=== PATIENT | male | born 1980 | race Caucasian/White ===

== ENCOUNTER 2019-05-29 17:22 | Emergency (ER) | payer OTHER, SELFPAY ==
[2019-05-29 17:23] VITALS: BP 126/91; PULSE 86; RESP 15; TEMP 36.4; O2SAT 98
--- NOTE | 2019-05-29 18:02 | CT_ITS ---
STUDY: CT BRAIN WITHOUT CONTRAST REASON FOR EXAM: Male, 38 years old. Visual disturbances. RADIATION DOSAGE (If Supplied By Facility): CTDIvol = ( 60.81 ) mGy, DLP = ( 1044.28 ) mGycm TECHNIQUE: Transaxial CT imaging of the brain was performed without administration of intravenous contrast material. Individualized dose optimization techniques were used for this CT. COMPARISON: June 28, 2016 and MRI of the brain dated August 08, 2016 FINDINGS: Normal soft tissue structures. Normal calvarium. Normal size ventricles and extra-axial spaces for the patient''s age. Normal white matter tracts of the cerebral hemispheres. Normal basal ganglia and thalami. Normal brainstem. Normal cerebellum. There is no intracranial hemorrhage. There are no findings of an acute ischemic infarction. Normal visualized paranasal sinuses. CT/Brain/Head without Contrast IMPRESSION: No acute intracranial process. Electronically Signed: Charissa Pavon MD at 18:30 EST Tel , Service support ,
--- NOTE | 2019-05-29 19:57 | ED.VISSUMM ---
- ER Visit Summary Date of Service: 05/29/19 Chief Complaint: Bilateral visual disturbance History of Present Illness: The patient is a 38 M who comes to the ER today saying he is having after images. He states he is having half oates and halo images around his eyes intermittently. They last about 20 minutes and then they go away. He denies any trauma to the area. He wears glasses. He denies any blurry vision. No diplopia. He has no pain in the eyes. He has a slight very mild headache. No history of migraines. Physical Examination: Vital signs reviewed. Bilateral eye exam is normal. His pupils are equal. His extraocular motions are intact and normal. There is no nystagmus. The posterior exam reveals a normal fundus. His neurologic exam is also normal. Test Results: CAT scan of the head is normal Emergency Department Course and Treatment: I am unclear as to what is causing the patient's symptoms. He is in no acute distress right now. He is not having any of these symptoms. I will give him ophthalmology follow-up and he is going to call them tomorrow morning. Treatment Plan: [] Disposition: Discharge Impression: Bilateral visual disturbance This note was generated with [employer] dictation software. It may contain incorrect words, spelling, and punctuation that were not noted in review of the chart prior to signing ED Disposition - Plan for ED Patient: Disposition: Home or Assisted Living Instructions: Treating Flashes and Floaters Referrals: Alem Mejia MD [STAFF PHYSICIAN] -
[2019-05-29 20:00] VITALS: BP 142/98; PULSE 97; RESP 18; O2SAT 97
== END 2019-05-29 20:26 | disposition home or self-care (01) ==
PROVIDERS: Emergency Provider Emergency Medicine; Family Provider Internal Medicine; PCP Internal Medicine
DX: H53.19 Other subjective visual disturbances (principal)
CPT/HCPCS: 70450; 99282

== ENCOUNTER 2020-03-07 07:01 | Observation (INO) | payer OTHER, SELFPAY ==
[2020-03-07] VITALS (14 sets, daily range): BP systolic 107–136; BP diastolic 73–101; PULSE 80–117; RESP 16–18; TEMP 36.3–36.9; O2SAT 93–100; BMI 27.3; BMI 27.6
--- NOTE | 2020-03-07 | APP_PTH ---
PATIENT: ABRAHAM BLEVINS LOC: [facility]3 U#:[id number] AGE/SX: 39/M ROOM: MS314 RE03/07/[address]: Dr. Chon Mathias MD : 1980 BED: 1 DIS: 03/08/2020 SPEC #: [id number] RECD: 03/07/20 14:25 STATUS: MEE RENeisha #: [id number] TONY: 03/07/20 00:[address]: Chon Mathias DEPT: SURGICAL PATHOLOGY RECD BY: Ayaz [place] ENTERED: 03/08/20 08:36 SP TYPE: APPENDIX OTHR DR: Dr. Sumi Granados MD Tissues: Appendix, NOS Procedures: Surgery Specimen Level III HEADER OPERATION: Laparoscopic appendectomy PRE-OP DIAGNOSIS: Acute appendicitis TISSUE SUBMITTED: Appendix MICROSCOPIC DIAGNOSIS Appendix, appendectomy: Acute necrotizing appendicitis. Acute serositis. AM:vinod 03/09/20 MICROSCOPIC DESCRIPTION Slides are reviewed. GROSS DESCRIPTION Received in fixative is one container labeled with the patient's name and designated appendix. The specimen consists of an appendix measuring 7 cm in length and up to 1 cm in diameter. The attached periappendiceal adipose tissue measures up to 2 cm in width. The serosa is covered focally with rowley, purulent exudate. No obvious perforation is identified. The lumen does not contain any fecalith. [employer] sections are submitted in one cassette. / SJ:vinod 03/08/20 TC:2 [facility]: [id number]
--- NOTE | 2020-03-07 07:33 | CT_ITS ---
STUDY: CT ABDOMEN AND PELVIS WITH CONTRAST REASON FOR EXAM: Male, 39 years old. GENERALIZED ABD PAIN, PAIN AT NAVEL AREA, N/V, HX-GERD RADIATION DOSAGE (If Supplied By Facility): CTDIvol = ( 12.75 ) mGy, DLP = ( 951.17 ) mGycm TECHNIQUE: Transaxial images were obtained from the dome of the diaphragm to the symphysis pubis without oral contrast. IV 100mL Isovue-300 was administered. Sagittal and coronal images were reconstructed. Individualized dose optimization techniques were used for this CT. COMPARISON: None. FINDINGS: Mild increased markings at the lung bases suggestive of bibasilar atelectasis. The visualized portions of the heart are within normal limits. There is decreased attenuation of the liver consistent with steatosis. Normal gallbladder and extrahepatic biliary system. Normal spleen. Normal pancreas. Normal bilateral adrenal glands. Normal right kidney. Normal left kidney. There is a small hiatal hernia. Normal small intestine. Normal colon. There is a tubular, thick-walled appendix (>7mm), consistent with acute appendicitis. A small appendicolith is seen within the appendix. The appendicolith measures 3.8 mm. Normal abdominal aorta. Normal inferior vena cava. There is borderline retroperitoneal lymphadenopathy with enlarged nodes no greater than 10mm in the short axis diameter. Normal urinary bladder. There is a left-sided inguinal hernia containing adipose tissue. Small umbilical hernia containing fat. Loss of the normal lumbar lordosis. CT/Abdomen/Pelvis W IV Cont ONLY IMPRESSION: Small appendicolith with inflammatory changes of the appendix in keeping with acute appendicitis. Diffuse fatty infiltration of the liver. Mild degree of bibasilar atelectasis. Electronically Signed: Bassam Rojas, at 9:27 EDT , Service support ,
--- NOTE | 2020-03-07 07:34 | ED.VIS.GI ---
History of Present Illness Chief Complaint: Abd Pain Informant: Patient - Abdominal Pain/Flank Pain Onset: Yesterday Context: Gradual Onset Timing: Continuous Quality: Aching Location: - - periumbilical Current Severity: Moderate Maximum Severity: Moderate Worsened by: Nothing Relieved by: Nothing - Nausea/Vomiting/Emesis GI Symptom: Nausea, Vomiting Quality: Nonbilious. Negative for: Blood streaks, Coffee ground, Hematemesis Episodes: 3 - Diarrhea/Melena/Hematochezia GI Symptom: - - feels like I need to have a BM but can't. Negative for: Diarrhea, Melena, Hematochezia Associated Symptoms: Negative for: Dysuria, Frequency, Hematuria, Urgency Narrative: Healthy 39-year-old male presenting with periumbilical abdominal pain that started first, followed by a couple episodes of vomiting. No radiation of the pain or migration. No suspicion for food poisoning recently. No history of any abdominal surgeries. No issues with urination although he is going less and feels dehydrated. Prior similar symptoms: No Recent Illness/Hospitalization: No Past Medical History - Allergies and Home Meds Allergies/Adverse Reactions: Allergies No Known Allergies Allergy (Verified 03/07/20 07:02) Primary Care Physician: Sumi Granados MD [Primary Care Provider] - Past Medical History: None Smoking Status: Never smoker Review of Systems General: Reports: Chills. Denies: Fever, Sweats Eyes: Denies: Visual changes - bilaterally, Diplopia ENT: Denies: Rhinorrhea, Sore throat Cardiovascular: Denies: Chest pain, Palpitations Respiratory: Denies: Dyspnea, Cough, Dyspnea on exertion Gastrointestinal: Reports: Abdominal pain, Nausea, Vomiting. Denies: Diarrhea, Melena, Hematochezia Genitourinary: Denies: Dysuria, Hematuria, Frequency Musculoskeletal: Denies: Myalgias, Back pain, Swelling, Extremity Pain Skin: Denies: Rash, Wounds Neurological: Denies: Headache, Weakness, Numbness Physical Exam Vital Signs/Narrative: Vital Signs Temp Pulse Resp BP Pulse Ox 03/07/20 07:02 98.5 F 117 H 18 136/101 H 95 Inital Vital Signs reviewed: Yes General: Well nourished, Well developed, No Acute Distress Head: Normocephalic, Atraumatic Eyes: Perrl, EOMI ENT: Moist mucous membranes, No rhinorrhea Neck: Supple, Nontender Cardiovascular: Regular rate, Regular rhythm, No murmurs, Tachycardia Respiratory: No distress, CTA bilaterally, Chest nontender Abdomen: Soft, Nondistended, Normal bowel sounds, Tender - Mild periumbilical only. No palpable hernia or abnormal skin coloration. Otherwise no tenderness in any quadrant.. Negative for: Guarding, Rebound tenderness Back: Nontender, Normal Inspection. Negative for: CVA tenderness Extremities: Nontender, No edema Skin: Normal color, No rash, No Trauma Neurological: Alert, Oriented x3, Cranial nerves II-XII grossly intact, Normal Strength, Normal Sensation, Normal Gait Psychological: Normal affect, Normal Mood Diagnostic/Tx/Re-eval Impressions Abdomen/Pelvis CT 03/07/20 07:33 IMPRESSION: Small appendicolith with inflammatory changes of the appendix in keeping with acute appendicitis. Diffuse fatty infiltration of the liver. Mild degree of bibasilar atelectasis. Electronically Signed: Bassam Marijajuliorere, at 9:27 EDT , Service support , 03/07/20 07:33 Abdomen/Pelvis W IV Cont ONLY [CT] Stat Laboratory Results 03/07/20 03/07/20 03/07/20 08:01 08:01 09:15 WBC 18.2 H RBC 5.06 Hgb 14.8 Hct 44.7 MCV 88.3 MCH 29.2 MCHC 33.1 RDW Std Deviation 41.5 RDW Coeff of Sreekanth 12.8 Plt Count 282 MPV 10.0 Immature Gran % (Auto) 1.400 H Neut % (Auto) 78.6 H Lymph % (Auto) 12.0 L [place] % (Auto) 7.6 Eos % (Auto) 0.1 Baso % (Auto) 0.3 Absolute Neuts (auto) 14.3 H Absolute Lymphs (auto) 2.18 Nucleated RBC % 0 Sodium 136 Potassium 4.2 Chloride 108 H Carbon Dioxide 23.0 Anion Gap 5 BUN 11 Creatinine 1.00 Estim Creat Clear Calc 103.42 Est GFR (MDRD) Af Amer 107 Est GFR (MDRD) Non-Af 89 BUN/Creatinine Ratio 11.0 Glucose 129 H Calcium 8.7 Total Bilirubin 0.60 AST 27 ALT 69 H Alkaline Phosphatase 70 Total Protein 6.9 Albumin 3.3 Globulin 3.6 Albumin/Globulin Ratio 0.9 Urine Color Yellow Urine Clarity Clear Urine pH 7.0 Ur Specific [place] 1.005 Urine Protein Negative Urine Glucose (UA) Normal Urine Ketones Negative Urine Occult Blood Negative Urine Nitrite Negative Urine Bilirubin Negative Urine Urobilinogen Normal Ur Leukocyte Esterase Negative - Medical Decision Making As above CT is consistent with acute appendicitis with an appendicolith. I reexamined the patient after he received IV fluids, Zofran, Toradol. He is feeling better. On exam, he now is tender mildly at McBurney's point where he was nontender earlier. He has negative Rovsing, psoas, obturator signs. His abdomen has no peritoneal signs. Discussed with surgery, will admit and provide antibiotics. ED Disposition - Plan for ED Patient: Disposition: Acute Care Hospital [facility] Diagnosis: Acute appendicitis Referrals: Sumi Granados MD [Primary Care Provider] -
[2020-03-07] MEDS: Ondansetron 4 MG/2 ML Vial IV (07:41)
[2020-03-07] MEDS: 0.9% Normal Saline 1,000 ML 1000 ML IV (07:42)
[2020-03-07] MEDS: Dicyclomine 20 MG/2 ML Vial IM (07:44)
[2020-03-07 08:26] LABS: ALB/GLOB Ratio 0.9 RATIO (0.9-2.4); AST(SGOT) 27 U/L (15-37); Alanine Aminotransfer ALT/SGPT 69 U/L (16-61); Albumin, Serum 3.3 g/dL (3.2-5.0); Alkaline Phosphatase 70 U/L (45-117); Anion Gap 5 (5-15); BUN 11 mg/dL (7-18); Calcium,Total 8.7 mg/dL (8.5-10.1); Chloride 108 mmol/L (98-107); EST Glomerular Filtration Rate 89 mL/min (>60); Est Glom Filt Rate - Afr Amer 107 mL/min (>60); Estimated Creatinine Clearance 103.42 ml/min; Globulin 3.6 g/dL (2.2-4.2); Glucose 129 mg/dL (74-106); Potassium 4.2 mmol/L (3.5-5.1); Protein, Total 6.9 g/dL (6.4-8.2); Sodium Level 136 mmol/L (136-145)
[2020-03-07 08:32] LABS: Absolute Lymphocyte Count 2.18 X10^3/uL (0.83-4.51); Absolute Neutrophil Count 14.3 X10^3/uL (2.0-7.7); Basophil# 0.06 X10^3/uL; Basophil% 0.3 % (0-1); Eosinophil# 0.01 X10^3/uL; Eosinophils% 0.1 % (0-5); Hematocrit 44.7 % (40-54); Hemoglobin 14.8 g/dL (13.0-16.5); Lymphocyte # 2.18 X10^3/ul (4.0); Mean Corp Hgb Conc 33.1 g/dL (32-36); Mean Corpuscular Hgb 29.2 pg (27.0-32.0); Mean Corpuscular Volume 88.3 fL (80-94); Monocyte# 1.38 X10^3/uL; Monocyte% 7.6 % (0-10); NRBC Flagged by Analyzer 0 % (0-5); Neutrophil # 14.32 X10^3/uL (2.7-7.7); Neutrophil % 78.6 % (47-70); Platelet Count 282 K/mm3 (150-450); RBC Distribution Width CV 12.8 % (11.6-14.6); RBC Distribution Width SD 41.5 fl (35.1-43.9); Red Blood Count 5.06 M/mm3 (4.6-6.2); White Blood Count 18.2 K/mm3 (4.4-11.0)
[2020-03-07 09:31] LABS: Bacteria 0 SEEN /hpf (None Seen); Mucous, Urine 0 SEEN /hpf (<or=2+); Red Blood Cells-Urine 0 SEEN /hpf (0-5); Squamous Epithelial Cells - UA 0 SEEN /hpf (0-5); White Blood Cells 0 SEEN /hpf (0-5)
[2020-03-07 09:37] LABS: Color, Urine Yellow (Yellow); Glucose, Dipstick Normal (Normal); Ketone-Dipstick Negative (Negative); Leukocyte Esterase-Dipstick Negative /ul (Negative); Nitrite-Dipstick Negative (Negative); Occult Blood-Urine Negative /ul (Negative); Protein-Dipstick Negative (Negative); Specific Gravity, Urine 1.005 (1.002-1.030); Urine Bilirubin Dipstick Negative (Negative); Urine Clarity Clear (Clear); Urine Urobilinogen Normal (Normal)
--- NOTE | 2020-03-07 10:35 | HP.PCM_ITS ---
Problem List (1) Acute appendicitis Status: Acute Qualifiers: Acute appendicitis type: unspecified acute appendicitis type Qualified Code(s): K35.80 - Unspecified acute appendicitis History of Present Illness Date of Admission: 03/07/20 The patient is a 39 year old M who presented with abdominal pain and nausea and vomiting. Patient reports he started feeling unwell yesterday afternoon around 3 PM. Around 7 PM he started having pain and nausea and vomiting. Pain is in the right lower quadrant and mid abdomen. Patient does not have any fevers or chills. He is never had issues with this before. Past Medical History Allergies No Known Allergies Allergy (Verified 03/07/20 07:02) Home Medications: Ambulatory Orders Medication Instructions Recorded Pantoprazole Sodium [Protonix] 20 mg PO DAILY 03/07/20 Surgical History: no surgical history Smoking Status: Never smoker - *Family History Maternal History Items: No pertinent history Review of Systems Constitutional: Denies: Anorexia, Fever Cardiovascular: Denies: Chest Pain Respiratory: Denies: Cough, Shortness of Breath Gastrointestinal: Reports: Abdominal Pain, Nausea, Vomiting. Denies: Hematemesis, Hematochezia Neurological: Denies: Balance problems Psychiatric: Denies: Anxiety Hematologic/ Lymphatic: Denies: Adenopathy VTE Information - Inpt Only VTE Present on Admission: No VTE Mechan Device Prophylaxis: SCD's Patient Problems: Active and Suspected Problems Acute appendicitis (Acute) - Physical Exam Vitals/I&O's: Vital Signs Temp Pulse Resp BP Pulse Ox 98.2 F 105 H 18 135/97 H 100 03/07/20 08:01 03/07/20 08:01 03/07/20 08:01 03/07/20 08:01 03/07/20 08:01 Oxygen Delivery Method Room Air Weight: 190 lb 11.198 oz Body Mass Index (BMI) 27.3 General: Alert, Oriented x3, Cooperative Neck: No JVD Lungs: Normal air movement Cardiovascular: Regular rate, Regular Rhythm Abdomen: Soft, Distended, Tender - Right abdominal tenderness Extremities: No clubbing Skin: No rashes Musculoskeletal: No Muscle Wasting Neurological: Cranial nerves II-XII grossly intact Psych/Mental Status: Normal Affect Laboratory Results 03/07/20 08:01: WBC 18.2 H, RBC 5.06, Hgb 14.8, Hct 44.7, MCV 88.3, MCH 29.2, MCHC 33.1, RDW Std Deviation 41.5, RDW Coeff of Sreekanth 12.8, Plt Count 282, MPV 10.0, Immature Gran % (Auto) 1.400 H, Neut % (Auto) 78.6 H, Lymph % (Auto) 12.0 L, [place] % (Auto) 7.6, Eos % (Auto) 0.1, Baso % (Auto) 0.3, Absolute Neuts (auto) 14.3 H, Absolute Lymphs (auto) 2.18, Nucleated RBC % 0 03/07/20 08:01: Sodium 136, Potassium 4.2, Chloride 108 H, Carbon Dioxide 23.0, Anion Gap 5, BUN 11, Creatinine 1.00, Estim Creat Clear Calc 103.42, Est GFR (MDRD) Af Amer 107, Est GFR (MDRD) Non-Af 89, BUN/Creatinine Ratio 11.0, Glucose 129 H, Calcium 8.7, Total Bilirubin 0.60, AST 27, ALT 69 H, Alkaline Phosphatase 70, Total Protein 6.9, Albumin 3.3, Globulin 3.6, Albumin/Globulin Ratio 0.9 03/07/20 09:15: Urine Color Yellow, Urine Clarity Clear, Urine pH 7.0, Ur Specific [place] 1.005, Urine Protein Negative, Urine Glucose (UA) Normal, Urine Ketones Negative, Urine Occult Blood Negative, Urine Nitrite Negative, Urine Bilirubin Negative, Urine Urobilinogen Normal, Ur Leukocyte Esterase Negative, Urine RBC 0 SEEN, Urine WBC 0 SEEN, Ur Squamous Epith Cells 0 SEEN, Urine Bacteria 0 SEEN, Urine Mucus 0 SEEN Clinical Impression(s) from Imaging Studies Abdomen/Pelvis CT 03/07/20 07:33 IMPRESSION: Small appendicolith with inflammatory changes of the appendix in keeping with acute appendicitis. Diffuse fatty infiltration of the liver. Mild degree of bibasilar atelectasis. Electronically Signed: Bassam Rojas, at 9:27 EDT , Service support , Assessment/Plan All Active Problems Acute appendicitis (Acute) 39-year-old male with acute appendicitis 1. Patient reports that he is having right lower quadrant pain and is been going on since yesterday. CT scan shows acute appendicitis. Patient was given Zosyn in the emergency room. I discussed laparoscopic appendectomy with the patient in detail. I discussed the risks including but not limited to bleeding, infection, injury to other organs such as the bowel, ureter, bladder. The patient understands all the risks and is well to proceed. The patient also has a distended abdomen I believe he has an ileus due to his appendicitis. Patient will be kept n.p.o. until he starts passing flatus. He will be admitted to the floor after surgery. Chon Mathias MD Pager: [facility] [address] [place] [address], [address] [place] [address] Office:
[2020-03-07] MEDS: Bupiv/Epi 0.25% 30 ML Vial (11:30)
--- NOTE | 2020-03-07 12:25 | OP.PCM_ITS ---
Problem List (1) Acute appendicitis Status: Acute Qualifiers: Acute appendicitis type: unspecified acute appendicitis type Qualified Code(s): K35.80 - Unspecified acute appendicitis Report of Operation Date of Procedure: 03/07/20 Pre-Operative Diagnosis: Acute appendicitis Post-Operative Diagnosis: Same Surgery/Procedure Performed:: Laparoscopic appendectomy Specimen's removed: Appendix Description of Procedure: The patient was brought into the operating room and general anesthesia was induced. The left arm was tucked and the abdomen was prepped and draped in usual sterile fashion. A small midline incision was made superior to the umbilicus and deepened to the level of the fascia. The fascia was elevated and incised. The peritoneum was also elevated and incised. A finger sweep was performed and a balloon trocar was placed into the abdomen and inflated. The abdomen was insufflated to 15 mmHg and the camera was inserted and the abdomen was inspected for any injuries upon entering the abdomen. There were none. The patient was placed in Trendelenburg position and a 5 mm ports placed in the left lower quadrant and suprapubic areas under direct visualization. Next using atraumatic bowel graspers the appendix was identified. The appendix was grasped and elevated and Enseal was used to take down the mesoappendix. A stapler was used to come across the base of the appendix. The appendix was then placed in Endo Catch bag and removed through the umbilical incision. The staple line was inspected and found to be hemostatic and intact. The 2 5 mm ports are removed under direct visualization. The balloon trocar was deflated and removed and all the air was removed from the abdomen. The umbilical incision fascia was closed with an 0 Vicryl [id number] suture. The incisions were then irrigated with saline and dried. Local anesthetic was injected into the incision sites. The skin incisions were then closed with interrupted 4-0 Monocryl suture and Steri- Strips. Bandages were applied and the patient was awoken and taken to PACU in stable condition. Patient tolerated the procedure well. - Admit VTE Documentation VTE Mechan Device Prophylaxis: SCD's
[2020-03-07] MEDS: Lactated Ringers 1,000 ML 100 ML IV (12:38)
[2020-03-07] MEDS: 0.9% Normal Saline 1,000 ML 60 ML IV (14:54)
[2020-03-07] MEDS: Acetaminophen 325 MG Tablet 650 MG PO (22:23)
[2020-03-08 02:39] VITALS: BP 106/65; PULSE 78; RESP 16; TEMP 36.8; O2SAT 92
[2020-03-08] MEDS: Acetaminophen 325 MG Tablet 650 MG PO (02:56)
[2020-03-08] MEDS: 0.9% Normal Saline 1,000 ML 60 ML IV (06:59)
[2020-03-08 08:25] VITALS: BP 124/78; PULSE 103; RESP 16; TEMP 36.8; O2SAT 97
--- NOTE | 2020-03-08 08:54 | DCINST_ITS ---
Discharge Diet: Light diet - advance as tolerated Discharge Activity: May Not Drive - for 3-5 days or while taking narcotic pain meds. May shower in (days): 1 Lifting Restrictions: 20 lbs for 2 weeks Call your doctor if your incision/area has: Continuous Slow Oozing, Sudden Increased Bleeding, Increased Pain/ Swelling, Increased Redness, Foul Smelling Discharge Call your doctor if you observe: Fever of 101 or Higher Suture Line Care: Avoid Pulling/Pushing, Avoid Pinching/Bending Additional Dressing/Incision Instructions:: Keep dressing clean and dry. Change or remove dressing in 2 days. Leave steri strips for 1 week. May protect with a gauze bandaid. Medications to take at Discharge Pantoprazole Sodium [Protonix] 20 mg PO DAILY 03/07/20 Acetaminophen [Tylenol Tablet] 650 mg PO Q4H PRN PRN tab 03/08/20 Allergies/Adverse Reactions: Allergies No Known Allergies Allergy (Verified 03/07/20 07:02) Test Results: Test results from this visit will be discussed in further detail at your follow- up appointment, if applicable. Please Follow Up With: Chon Mathias MD When: Please call to schedule 2 week follow up appointment. [phone]
[2020-03-08 13:51] VITALS: BP 111/71; PULSE 81; RESP 16; TEMP 36.9; O2SAT 97
== END 2020-03-08 14:09 | disposition home or self-care (01) ==
LOC: ED 10:01 → SDC 10:27 → AC 10:28 → MS3 11:54 → SDC 12:54 → MS3 12:54
PROVIDERS: Admitting Provider Surgery; Emergency Provider Emergency Medicine; PCP Internal Medicine; Visit Provider Surgery
PROC: 0DTJ4ZZ Resection of Appendix, Percutaneous Endoscopic Approach (ICD-10-PCS; CPT 44970; principal; 2020-03-07 12:25)
DX: K35.80 Unspecified acute appendicitis (principal); K76.0 Fatty (change of) liver, not elsewhere classified; K21.9 Gastro-esophageal reflux disease without esophagitis; Z79.899 Other long term (current) drug therapy
CPT/HCPCS: 00840; 44970; 74177; 80053; 81001; 85025; 88304; 96365; 96366; 96372; 96375; 99218; 99284; J7030; J7120; Q9967; A4216; C1760; G0378; J2405